=== PATIENT | male | born 1960 | race Caucasian/White ===

== ENCOUNTER 2017-10-03 08:57 | Emergency (ER) | payer SELFPAY ==
[~2017-10-03 08:57] MED LIST: ATOR40TA69 PO; AUG875 PO; BACL-1 PO; CLIN300C99 PO; CYCL10TA29 PO; DAPA5TAB PO; DIA5 PO; DIAZ2TAB72 PO; GLY25 PO; HYDR-3503 PO; HYDR-4240 PO; HYDR-4309 PO; IBU200 PO; IBUP600T22 PO; IBUP800T37 PO; LEVI SUBQ; LISI-355 PO; LISI-362 PO; LISI20TA29 PO; LOR5/325 PO; LOR75 PO; MET500 PO; METF-421 PO; METH-543 PO; METH4TAB66 PO; OXYC-865 PO; OXYC1TAB54 PO; PER PO; PRED-1 PO; SIMV-42 PO; TRAM-420 PO
--- NOTE | 2017-10-03 09:02 | ER Report ---
History and Physical Time Seen By MD: 09:01 HPI/ROS CHIEF COMPLAINT: Arm injury HISTORY OF PRESENT ILLNESS: Patient is a 56-year-old male who presents emergency Department with left shoulder pain. Patient states he was using a trolley EKG move boxes on a [employer] truck. He states that he lost the fur buyer of the right part of the jonathan and tried to keep the jonathan from moving by holding with his left hand. He felt pain and burning in his left shoulder. He now has painful range of motion specifically with external rotation and abduction of the shoulder. Patient states he has a prior history of right shoulder rotator cuff injury. He states that it feels the same. Currently 8 out of 10 in intensity. REVIEW OF SYSTEMS: Constitutional: No fever, no chills. Musculoskeletal: No back pain. Left shoulder pain Skin: No rashes. Neurological: No headache. Allergies: Coded Allergies: Tetanus Vaccines and Toxoid (Verified Allergy, Severe, AIRWAY OBSTRUCTION , 10/03/17) cyclobenzaprine (Verified Adverse Reaction, Intermediate, NAUSEA/VOMITING , 10/03/17) Home Meds Active Scripts Ibuprofen (IBUPROFEN) 800 Mg Tablet, 1 TAB PO Q8H for PAIN, #60 TAB Prov:SUKI RAUSCH DO 12/29/15 Reported Medications Insulin Detemir (LEVEMIR) 100 Unit/Ml Injs, 100 UNIT SUBQ 02/27/17 Lisinopril (LISINOPRIL) 20 Mg Tablet, 20 MG PO QDAY, TAB 05/01/15 Atorvastatin Calcium (ATORVASTATIN CALCIUM) 40 Mg Tablet, 1 TAB PO QDAY, TAB 05/01/15 Metformin Hcl (METFORMIN HCL) 1,000 Mg Tablet, 1 TAB PO BID, TAB 05/01/15 Dapagliflozin Propanediol (Farxiga) 5 Mg Tablet, 1 TAB PO DAILY 02/05/15 Discontinued Scripts Methylprednisolone (METHYLPREDNISOLONE) 4 Mg Tab.ds.pk, 4 MG PO DIRECTED, # 21 TAB Prov:AVANI VILLALTA MD 02/27/17 Oxycodone Hcl/Acetaminophen (PERCOCET 5-325 MG TABLET) 1 Each Tablet, 1-2 EACH PO Q4-6H for PAIN, #30 TAB 0 Refills Prov:AVANI VILLALTA MD 02/27/17 Methocarbamol (ROBAXIN-750) 750 Mg Tablet, 1 TAB PO TID Y for muscle spasm relief, #20 Prov:RAYO SMITH DO 12/12/16 Oxycodone Hcl/Acetaminophen (PERCOCET 5-325 MG TABLET) 1 Each Tablet, 1 EACH PO Q4-6H Y for PAIN, #12 Prov:RAYO SMITH DO 12/12/16 Prednisone 10 Mg Tab (PREDNISONE 10 MG TAB) 10 Mg Tablet, 10 MG PO QDAY Y for reduce inflammation, #21 4 tabs daily for 3 days 2 tabs daily for 3 days 1 tab daily for 3 days Prov:RAYO SMITH DO 12/12/16 Cyclobenzaprine Hcl (CYCLOBENZAPRINE HCL) 10 Mg Tablet, 10 MG PO TID, #20 TAB Prov:SUKI RAUSCH DO 12/29/15 Tramadol Hcl (TRAMADOL HCL) 50 Mg Tablet, 50-100 MG PO Q4-6H for PAIN, #30 TAB Prov:SUKI RAUSCH DO 12/29/15 Past Medical/Surgical History Past medical history for hypertension, hypercholesterol and insulin-dependent diabetes. Hx Smoking: No Smoking Status: Never Smoker Exposure to Second Hand Smoke?: No Hx Substance Use Disorder: No Hx Alcohol Use: No Constitutional Vital Sign - Last 24 Hours 10/03/17 09:08 Temp 98.2 Pulse 91 Resp 20 B/P (MAP) 151/86 Pulse Ox 95 O2 Delivery Room Air Physical Exam General appearance: Alert no distress. Respiratory: Chest is non tender, lungs are clear to auscultation. Cardiac: Regular rate and rhythm Patient with painful external rotation and abduction of the left shoulder. Patient is able to pronate and supinate the forearm without difficulty. He does feel some discomfort again up in the shoulder. There does not appear to be any gross deformity of the shoulder and no step-off. Sensation intact over the anterior deltoid. Examination of the Left hand reveals no acute deformity. The patient is able to give a thumbs up sign, is able to make an okay sign, and is able to AB duct the fingers. Sensation is intact over the dorsal 1st web space, the volar aspect of the 2nd finger, and the volar aspect of the 5th finger. Capillary refill is brisk. Medical Decision Making EKG/Imaging Imaging Left shoulder x-ray shows no fracture or malalignment this was interpreted by the radiologist ED Course/Re-evaluation ED Course X-ray shows no acute fracture or malalignment. Suspect this may be a muscular related injury. We'll refer the patient to orthopedics in the meantime we will place the patient in a sling for no longer than 72 hours and prescribed pain medication Decision to Disposition Date: Oct 03, 2017 Decision to Disposition Time: 10:00 Depart Departure Latest Vital Signs Vital Signs Date Time Temp Pulse Resp B/P (MAP) Pulse Ox O2 Delivery O2 Flow Rate FiO2 10/03/17 09:08 98.2 91 20 151/86 95 Room Air Impression: Primary Impression: Rotator cuff disorder Condition: Improved Disposition: HOME OR SELF-CARE Referrals: DELPHINE MOON MD 2 Weeks If your symptoms of shoulder pain persist New Scripts Oxycodone Hcl/Acetaminophen (PERCOCET 5-325 MG TABLET) 1 Each Tablet 1 EACH PO Q6H for PAIN, #20 TAB 0 Refills Prov: AVANI VILLALTA MD 10/03/17 Patient Instructions: Exercises for Shoulder Abduction and Adduction (GEN), Exercises for Shoulder Flexion and Extension (ED), How to Use a Sling (GEN), Shoulder Pain (GEN) Additional Instructions: Wear the sling intermittently for the next 72 hours then discontinue. At least 3 -4 times in the 1st 72 hours be sure you are removing your arm and performing the exercises on your discharge instruction sheet. Problem Qualifiers Primary Impression: Rotator cuff disorder Laterality: left Qualified Codes: M67.912 - Unspecified disorder of synovium and tendon, left shoulder AVANI VILLALTA MD Oct 03, 2017 09:02
--- NOTE | 2017-10-03 09:54 | RADIOLOGY IMAGING REPORT ---
FACILITY: [facility] PATIENT NAME: Corey Isaacs : 1960 MR: [id number] V: [id number] EXAM DATE: ORDERING PHYSICIAN: AVANI VILLALTA TECHNOLOGIST: Location: [facility] Patient: Corey Isaacs : 1960 Visit/Account:[id number] Date of Sevice: 10/03/2017 EXAMINATION: Left shoulder radiographs 3 views HISTORY: Pain, injury COMPARISON: None. FINDINGS: Internal and external rotation frontal views and scapula Y view obtained. Bones: Normal. Joint spaces: Normal. Alignment: Normal. Soft tissues / visualized lungs: Tiny chronic ossification superior to the acromioclavicular joint. IMPRESSION: No fracture or malalignment. Report Dictated By: Corona Butterfield MD at 10/03/2017 9:48 AM Report E-Signed By: Corona Butterfield MD at 10/03/2017 9:50 AM WSN:[id number]
[2017-10-03 10:00] VITALS: BP 122/86
[2017-10-03] MEDS ORDERED: OXYC-865 PO (10:02)
== END 2017-10-03 10:13 | disposition home or self-care (01) ==
LOC: ER 09:49
DX: M67.912 Unspecified disorder of synovium and tendon, left shoulder (principal)
CPT/HCPCS: 73030; 99283; A4565